=== PATIENT | female | born 1990 | race Two or more races ===

== ENCOUNTER 2019-02-04 13:39 | Emergency (ER) | payer SELFPAY ==
[2019-02-04 13:53] VITALS: RESP 18; TEMP 98.3; O2SAT 99
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
[2019-02-04 14:52] VITALS: BP 136/70; PULSE 80
== END 2019-02-04 14:50 | disposition home or self-care (01) ==
LOC: H.ER 13:39
DX: M54.9 Dorsalgia, unspecified (principal); V43.52XA Car driver injured in collision with other type car in traffic accident, initial encounter; Y92.410 Unspecified street and highway as the place of occurrence of the external cause